=== PATIENT | female | born 2000 | race Caucasian/White ===

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

== ENCOUNTER 2022-03-01 10:04 | Day surgery (SDC) | payer BC, OTHER ==
[2022-02-25 15:00] VITALS: BMI 34.3
[~2022-03-01 10:04] MED LIST: LACTATED RINGERS 1,000 ML IV SCH; LIDOCAINE 1% (10MG/ML) FOR IV START INTRADERMA PRN
[2022-03-01 10:36] VITALS: TEMP 97.5
[2022-03-01] MEDS ORDERED: PROPOFOL 10 MG/ML 20 ML VIAL IV ONE (10:50)
[2022-03-01] MEDS ORDERED: LIDOCAINE 2% INJ 20 MG/ML (2 ML VIAL) ONE (10:50)
--- NOTE | 2022-03-01 10:57 | P.PCN ---
Date of Procedure: 03/01/22 Procedure(s) Performed: BRIEF HISTORY: Patient is a 21-year-old, pleasant, white female scheduled for an upper endoscopy as a part of evaluation of GERD for the last several years duration. Presently on omeprazole as needed and doing well. Lately has been complaining of nausea and abdominal bloating and being evaluated for possible celiac disease PROCEDURE PERFORMED: Esophagogastroduodenoscopy with biopsy. PREOPERATIVE DIAGNOSIS: Long-standing history of GERD. IV sedation per anesthesia. PROCEDURE: After informed consent was obtained, the patient was brought into the endoscopy unit. IV sedation was administered by Anesthesia under continuous monitoring. Initially the Olympus GIF-140 video endoscope was inserted into the mouth. Esophagus intubated without any difficulty. It was gradually advanced into the stomach and duodenum and carefully examined. The bulb and the second part of the duodenum appeared normal. Multiple biopsies were done from the duodenum to rule out celiac disease. The scope at this time was withdrawn to the stomach, adequately insufflated with air, and upon careful examination, mucosa of the antrum, had mild mottling of the mucosa and biopsies were done from this area. Mucosa of the body, cardia and the fundus appeared normal. The scope was then withdrawn into the esophagus. The GE junction was located at 39 cm from the incisors. The esophagus appeared normal. There were no erosions or ulcerations seen and the patient tolerated the procedure well. IMPRESSION: 1. Normal-appearing duodenum status post multiple biopsies to rule out celiac disease.. 2. Mild antral gastritis 3. Normal-appearing esophagus with no evidence of esophagitis. RECOMMENDATIONS: The findings of this examination were discussed with the patient as well as a family. She was advised to follow with the biopsy results. She will continue with omeprazole 20 mg daily and follow antireflux measures..
[2022-03-01 11:24] VITALS: BP 108/70; PULSE 70; RESP 20
== END 2022-03-01 11:42 | disposition home or self-care (01) ==
LOC: ORWHC2ENDO 10:04
PROVIDERS: ATTEND Internal Medicine Gastroenterology
DX: K29.50 Unspecified chronic gastritis without bleeding (principal); K21.9 Gastro-esophageal reflux disease without esophagitis; G43.909 Migraine, unspecified, not intractable, without status migrainosus; F17.200 Nicotine dependence, unspecified, uncomplicated; Z79.899 Other long term (current) drug therapy
CPT/HCPCS: 81025; 43239; J2704; J2001; 88305

== ENCOUNTER 2022-09-28 17:40 | Outpatient (CLI) | payer BC, OTHER ==
[2022-09-28 18:14] VITALS: BP 125/73; PULSE 85; RESP 16; TEMP 95.9
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
== END 2022-09-28 18:06 | disposition home or self-care (01) ==
LOC: FBPOP 17:40
PROVIDERS: ATTEND Obstetrics & Gynecology
DX: O36.8121 Decreased fetal movements, second trimester, fetus 1 (principal); O99.332 Smoking (tobacco) complicating pregnancy, second trimester; F17.200 Nicotine dependence, unspecified, uncomplicated; Z3A.27 27 weeks gestation of pregnancy; Z88.8 Allergy status to other drugs, medicaments and biological substances
CPT/HCPCS: 99213

== ENCOUNTER 2022-10-12 19:44 | Outpatient (CLI) | payer BC, OTHER ==
[2022-10-12] MEDS ORDERED: ACETAMINOPHEN TAB 325 MG TAB PO STA (20:09)
[2022-10-12 21:38] VITALS: BP 115/63; PULSE 92; RESP 19; TEMP 97.4
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
== END 2022-10-12 20:56 | disposition home or self-care (01) ==
LOC: FBPOP 19:44
PROVIDERS: ATTEND Obstetrics & Gynecology Obstetrics
DX: O26.893 Other specified pregnancy related conditions, third trimester (principal); Z3A.29 29 weeks gestation of pregnancy; Z88.8 Allergy status to other drugs, medicaments and biological substances; T14.90XA Injury, unspecified, initial encounter; W19.XXXA Unspecified fall, initial encounter
CPT/HCPCS: 59025; 99213

== ENCOUNTER 2022-12-23 17:33 | Inpatient (IN) | payer BC, OTHER ==
[2022-12-23] MEDS ORDERED: NALBUPHINE 10 MG/ML (10 ML MDV) IV PRN (18:19)
--- NOTE | 2022-12-23 18:19 | P.HPOB ---
History of Present Illness H&P Date: 12/23/22 Chief Complaint: IUP at 39-3/7 weeks, spontaneous rupture of membranes This is a 22-year-old 1 para 0 at 39-3/7 weeks that presents to labor and delivery with complaints of rupture of membranes. Patient states she was seen in the office today and was noted to be 4 cm dilated. Patient has been receiving routine care which has been complicated by diagnosis of polyhydramnios, amniotic fluid index of 26, SGA fetus at the 15th percentile. Patient does admit to baby being ring the but states she is trying to quit. She does note good movement, notes an occasional contraction. Patient states after her visit she did have some pink discharge followed a few hours later by some watery mucus discharge. Upon presentation to labor and delivery Amni sure was noted to be positive. heart tones are noted to be category 1 and she is jefe irregularly. On blood work she has a blood type of O-, rubella status immune, RPR is nonreactive, hepatitis B surface antigen negative, HIV is negative, she did pass her 1 hour gestational diabetes screen, 99. She receive program on 10/07. T dap on 10/07. Group beta strep culture was negative on 12/02. Review of Systems Constitutional: Denies chills, Denies fatigue, Denies fever Ears, nose, mouth and throat: Denies headache Cardiovascular: Reports leg edema Respiratory: Denies dyspnea Gastrointestinal: Denies constipation, Denies diarrhea, Denies nausea, Denies vomiting Genitourinary: Reports Past Medical History Past Medical History: GERD/Reflux Additional Past Medical History / Comment(s): migraines. gluten intolerance History of Any Multi-Drug Resistant Organisms: None Reported Past Surgical History: No Surgical Hx Reported Additional Past Surgical History / Comment(s): egd Past Anesthesia/Blood Transfusion Reactions: No Reported Reaction Smoking Status: Current every day smoker - Past Family History Mother Family Medical History: Cancer Additional Family Medical History / Comment(s): lung and breast, Grandma had br east and pancreatic, other Grandfather bladder and lung Medications and Allergies Home Medications Medication Instructions Recorded Confirmed Type Pnv,Calcium 72/Iron/Folic Acid 1 each PO DAILY 09/28/22 12/23/22 History [Westab Plus Tablet] Omeprazole 20 mg PO DAILY 12/23/22 12/23/22 History Allergies Allergy/AdvReac Type Severity Reaction Status Date / Time nystatin Allergy Rash/Hives Verified 12/23/22 17:51 Exam Osteopathic Statement: *. No significant issues noted on an osteopathic structural exam other than those noted in the History and Physical/Consult. Intake and Output 12/23/22 12/23/22 12/23/22 06:59 14:59 22:59 Other: Weight 95.708 kg Targeted physical exam is performed and state in general this a well-nourished well-developed female in no acute distress, breathing is nonlabored, heart has a regular rate and rhythm, abdomen is gravid, cervical exam per RN is 5//-3 station heart tones are noted to be category 1 and she is jefe irregularly Assessment and Plan (1) Term Current Visit: Yes Status: Acute Code(s): Z34.90 - ENCNTR FOR SUPRVSN OF NORMAL , UNSP, UNSP TRIMESTER SNOMED Code(s): 77036217 (2) Polyhydramnios Current Visit: Yes Status: Acute Code(s): O40.9XX0 - POLYHYDRAMNIOS, UNSP TRIMESTER, NOT APPLICABLE OR UNSP SNOMED Code(s): 91385510 (3) SGA (small for gestational age), , affecting care of mother, antepartum Current Visit: Yes Status: Acute Code(s): O36.5990 - MATERN CARE FOR OTH OR SUSP POOR FETL GRTH, UNSP TRI, UNSP SNOMED Code(s): 950091924 Plan: 22-year-old 1 para 0 at 39-3/7 weeks that presents to labor and delivery for studies rupture of membranes. Spontaneous rupture of membranes was confirmed with amnio sure. Patient is admitted to labor and delivery for expectant management, group beta strep culture is negative. Patient will be augmented with Pitocin if necessary. Options for analgesia are discussed including Stadol, Nubain, nitrous, epidural.
[2022-12-23] MEDS ORDERED: CARBOPROST TROMETHAMINE 250 MCG/ML 1 ML AMP IM PRN (18:20)
[2022-12-23] MEDS ORDERED: OXYTOCIN 10 UNIT/ML 1 ML VIAL IM PRN (18:20)
[2022-12-23] MEDS ORDERED: METHYLERGONOVINE 0.2 MG/ML 1 ML AMP IM PRN (18:20)
[2022-12-23] MEDS ORDERED: TERBUTALINE 1 MG/ML VIAL SQ PRN (18:20)
[2022-12-23] MEDS ORDERED: LIDOCAINE 0.5% (PF) 5 MG/ML (50 ML SDV) SQ PRN (18:20)
[2022-12-23] MEDS ORDERED: miSOPROStoL 200 MCG TAB PO PRN (18:20)
[2022-12-23] MEDS ORDERED: TRANEXAMIC 1,000 MG/100ML-NACL 1,000 MG in EMPTY BAG 1 BAG IV PRN (18:20)
[2022-12-23] MEDS ORDERED: OXYTOCIN 30 UNITS/500 ML NS 30 UNIT in SALINE 1 500ML.BAG IV SCH (18:30)
[2022-12-23 18:48] LABS: Basophils % (A) 0 %; Eosinophils # (A) 0.1 k/uL (0-0.7); Eosinophils % (A) 1 %; HCT 35.7 % (34.0-46.0); HGB 12.2 gm/dL (11.4-16.0); Lymphocytes # (A) 1.4 k/uL (1.0-4.8); Lymphocytes % (A) 13 %; MCH 33.1 pg (25.0-35.0); MCHC 34.1 g/dL (31.0-37.0); Mean Platelet Volume 9.2; Monocytes # (A) 0.5 k/uL (0-1.0); Monocytes % (A) 5 %; Neutrophils # (A) 8.3 k/uL (1.3-7.7); Neutrophils % (A) 80 %; Platelet Count 179 k/uL (150-450); RBC 3.68 m/uL (3.80-5.40); WBC 10.3 k/uL (4.0-11.0)
[2022-12-23] MEDS: LACTATED RINGERS 1,000 ML IV SCH (19:00)
[2022-12-24] MEDS ORDERED: fentaNYL (PF) 50 MCG/ML 5 ML AMP ONE (00:19)
[2022-12-24] MEDS ORDERED: PHENYLEPHRINE-0.9% NACL SYG 1,000 MCG/10 ML SYRINGE ONE (00:19)
[2022-12-24] MEDS ORDERED: ROPIVACAINE 5 MG/ML 30 ML VIAL ONE (00:19)
[2022-12-24] MEDS ORDERED: SODIUM CHLORIDE 0.9% 250 ML BAG ONE (00:19)
[2022-12-24] MEDS: LACTATED RINGERS 1,000 ML IV SCH ×2 (01:42→11:47)
[2022-12-24] MEDS ORDERED: diphenhydrAMINE 50 MG/ML 1 ML VIAL IVP PRN ×2 (11:20)
[2022-12-24] MEDS ORDERED: HYDROCORTISONE 2.5% RECTAL CREAM 30 GM TUBE RECTAL PRN (11:20)
[2022-12-24] MEDS ORDERED: diphenhydrAMINE 25 MG CAP PO PRN (11:20)
[2022-12-24] MEDS ORDERED: BENZOCAINE/MENTHOL SPRAY 1 GM/SPRAY AEROSOL TOPICAL PRN (11:20)
[2022-12-24] MEDS ORDERED: SIMETHICONE 80 MG CHEWABLE PO PRN (11:20)
[2022-12-24] MEDS ORDERED: LANOLIN CREAM 5 GM TUBE TOPICAL PRN (11:20)
[2022-12-24] MEDS ORDERED: diphenhydrAMINE 50 MG CAP PO PRN (11:20)
[2022-12-24] MEDS ORDERED: ZOLPIDEM 5 MG TAB PO PRN (11:20)
[2022-12-24] MEDS ORDERED: ACETAMINOPHEN TAB 325 MG TAB PO PRN (11:20)
--- NOTE | 2022-12-24 11:20 | P.PROBDLV ---
Vaginal Delivery Note - . Vaginal Delivery Note: DATE OF SERVICE: 12/24/2022 PROCEDURE: Normal Vaginal Delivery ATTENDING: Dr. Manjula Matt MD ESTIMATED BLOOD LOSS: 200 mL FINDINGS: VFI, Apgars 8/9. Weight 6 pounds and 3 ounces (2795 grams) PROCEDURE: Ms. Hernandez is a 22 year old at 39 weeks and 3 days presenting to labor and delivery for spontaneous rupture of membranes on 12/23 at 1700 with clear amniotic fluid noted. The has been uncomplicated. For further details, please review the admitting H&P. The patient received epidural anesthesia per her request. The patient was completely dilated at 1030. She pushed effectively. A viable female was delivered at 1047. The infant was placed on the maternal abdomen and bulb suctioned. The was noted to be spontaneously crying. Throughout the first and second stage of labor Category I heart tones were present. Cord was clamped and cut after a 30-second delay. The was handed off to the pediatric team. Placenta was delivered whole with gentle cord traction at 1053. Oxytocin was started to facilitate uterine tone. Uterine fundus was found to be firm and below the umbilicus upon fundal massage. Thorough examination of the cervix, vagina, periurethral area, and perineum revealed a deep left labia minora laceration and a second degree perineal laceration. The lacerations were repaired with 2-0 Vicryl in the usual fashion after being infiltrated with lidocaine. The patient is stable and allowed to begin the bonding process. Patient stable .
[2022-12-24] MEDS ORDERED: Rhogam IMMUNE GLOBULIN 1,500 UNIT/1 ML IM ONE (11:30)
[2022-12-24] MEDS: IBUPROFEN 600 MG TAB PO PRN ×2 (13:33→23:25)
[2022-12-24 15:32] LABS: Amphetamine Screen,Urine Not Detected (NotDetected); Barbiturate Screen,Urine Not Detected (NotDetected); Benzodiazepines Screen,Urine Not Detected (NotDetected); Cocaine Screen,Urine Not Detected (NotDetected); Methadone Screen, Urine Not Detected (NotDetected); Opiate Screen,Urine Not Detected (NotDetected); Oxycodone Screen, Urine Not Detected (NotDetected); Phencyclidine Screen,Urine Not Detected (NotDetected); Tricyclic Antidepressant,Urine Not Detected (NotDetected); Urn Cannabinoid Scrn Not Detected (NotDetected)
[2022-12-24] MEDS: SENNOSIDES-DOCUSATE SODIUM 1 EACH TAB PO SCH (20:03)
[2022-12-24 23:45] VITALS: PULSE 98
[2022-12-25 07:48] VITALS: BP 115/75; TEMP 99.6
[2022-12-25 08:06] VITALS: RESP 16
[2022-12-25] MEDS: SENNOSIDES-DOCUSATE SODIUM 1 EACH TAB PO SCH (08:11)
[2022-12-25] MEDS: IBUPROFEN 600 MG TAB PO PRN (08:12)
[2022-12-25 09:20] LABS: Basophils % (A) 0 %; Eosinophils % (A) 0 %; HCT 28.6 % (34.0-46.0); Lymphocytes # (A) 0.9 k/uL (1.0-4.8); Lymphocytes % (A) 8 %; MCH 32.9 pg (25.0-35.0); MCHC 33.7 g/dL (31.0-37.0); MCV 97.8 fL (80.0-100.0); Mean Platelet Volume 9.1; Monocytes # (A) 0.5 k/uL (0-1.0); Monocytes % (A) 4 %; Neutrophils # (A) 10.1 k/uL (1.3-7.7); Neutrophils % (A) 87 %; Platelet Count 145 k/uL (150-450); RBC 2.92 m/uL (3.80-5.40); RDW 12.7 % (11.5-15.5); WBC 11.6 k/uL (4.0-11.0)
[2022-12-25 09:25] LABS: HGB 9.6 gm/dL (11.4-16.0)
--- NOTE | 2022-12-25 10:38 | P.DS ---
Providers Date of admission: 12/23/22 18:14 Expected date of discharge: 12/25/22 Attending physician: Manjula Matt MD Primary care physician: Stated None - Discharge Diagnosis(es) (1) Normal spontaneous vaginal delivery Current Visit: Yes Status: Acute Hospital Course: The patient is a 22-year-old 1 para 0 admitted at 39-3/7 weeks by raysa spicer. She presents with documented spontaneous rupture of membranes for clear fluid. Her was uncomplicated aside from the diagnosis of polyhydramnios. Group B strep status is negative. On labor and delivery, all signs reassuring with category 1 heart rate tracing. She had Pitocin augmentation started and an epidural catheter placed for analgesia. She ultimately progressed to complete and pushed to a normal spontaneous vaginal delivery of a viable 6 lbs. 3 oz. baby girl with Apgars of 8 at 1 minute and 9 at 5 minutes. Her course was unremarkable with vital signs remained stable and her temperature was afebrile throughout. She was deemed stable for discharge on day #1 and was discharged home to follow-up in the office in 6 weeks' time routinely. Discharge instructions included calling for any significantly increased bleeding or foul-smelling lochia, significantly increased fever or abdominal pain, perineal complaints, breast complaints, or anything else that concerned her. She was additionally instructed to have nothing in the vagina for at least 6 weeks time to include intercourse. She understood her instructions and agrees to follow up as noted above. Discharge medications included continued vitamins as she has opted to breast- feed. She was otherwise to use [id number] analgesic pain medications as needed. Maternal blood type is O- and cord blood was sent for evaluation for the necessity of RhoGAM prior to discharge. Rubella status is immune. Procedures: #1. Pitocin augmentation #2. Epidural analgesia #3. Normal spontaneous vaginal delivery #4. Repair of perineal and labial lacerations. Patient Condition at Discharge: Stable Plan - Discharge Summary New Discharge Prescriptions: No Action Pnv,Calcium 72/Iron/Folic Acid [Westab Plus Tablet] 1 each PO DAILY Omeprazole 20 mg PO DAILY Discharge Medication List Pnv,Calcium 72/Iron/Folic Acid [Westab Plus Tablet] 1 each PO DAILY 09/28/22 [History] Omeprazole 20 mg PO DAILY 12/23/22 [History] Follow up Appointment(s)/Referral(s): Manjula Matt MD [STAFF PHYSICIAN] - 6 Weeks Discharge Disposition: HOME SELF-CARE
== END 2022-12-25 14:11 | disposition home or self-care (01) | DRG 806 ==
LOC: FBPOP 17:33 → 4FBP 18:14
PROVIDERS: ADMIT Obstetrics & Gynecology Obstetrics; ATTEND Obstetrics & Gynecology
PROC: 3E033VJ Introduction of Other Hormone into Peripheral Vein, Percutaneous Approach (ICD-10-PCS; principal; 2022-12-24)
PROC: 0UQMXZZ Repair Vulva, External Approach (ICD-10-PCS; 2022-12-24)
PROC: 10E0XZZ Delivery of Products of Conception, External Approach (ICD-10-PCS; 2022-12-24)
PROC: 0KQM0ZZ Repair Perineum Muscle, Open Approach (ICD-10-PCS; 2022-12-24)
PROC: 4A1HXCZ Monitoring of Products of Conception, Cardiac Rate, External Approach (ICD-10-PCS; 2022-12-24)
DX: O42.92 Full-term premature rupture of membranes, unspecified as to length of time between rupture and onset of labor (principal); K90.41 Non-celiac gluten sensitivity; Z37.0 Single live birth; O99.354 Diseases of the nervous system complicating childbirth; F17.210 Nicotine dependence, cigarettes, uncomplicated; O36.5930 Maternal care for other known or suspected poor fetal growth, third trimester, not applicable or unspecified; O40.3XX0 Polyhydramnios, third trimester, not applicable or unspecified; O70.1 Second degree perineal laceration during delivery; O99.334 Smoking (tobacco) complicating childbirth; Z3A.39 39 weeks gestation of pregnancy; G43.909 Migraine, unspecified, not intractable, without status migrainosus; K21.9 Gastro-esophageal reflux disease without esophagitis; O99.62 Diseases of the digestive system complicating childbirth; Z88.8 Allergy status to other drugs, medicaments and biological substances; O70.0 First degree perineal laceration during delivery
CPT/HCPCS: 59025; 80306; 84112; 85025; 86850; 86900; 86901; 99213

== ENCOUNTER 2022-12-28 04:36 | Emergency (ER) | payer BC, OTHER ==
[2022-12-28] MEDS ORDERED: SODIUM CHLORIDE 0.9% 1,000 ML IV STA (04:52)
[2022-12-28] MEDS ORDERED: ACETAMINOPHEN TAB 500 MG TAB PO STA ×2 (04:53→05:18)
--- NOTE | 2022-12-28 05:23 | ED ---
General Adult HPI - General Source: patient Mode of arrival: wheelchair <Magan Velasquez - Last Filed: 12/28/22 06:48> <Kong Abraham - Last Filed: 12/28/22 09:28> - General Chief complaint: Fever Stated complaint: Fever- 4 day Time Seen by Provider: 12/28/22 04:40 - History of Present Illness Initial comments: Dictation was produced using [employer] dictation software. please excuse any grammatical, word or spelling errors. Chief Complaint: 22-year-old female who is 4 days presents with fever History of Present Illness: 3-year-old female presents emergency Department with fever. States that she's been sick for the last several days prior to delivering her child. She is told that her fevers were from a viral infection. She delivered baby with no complications. Delivery was 4 days ago. That night she started to have chills and spike temperatures. Ultimately she was discharged. Today at home she started to have high temperatures of 103. Denies any cough. No sore throat or runny nose. Denies any abdominal pain. She does complain of some vaginal soreness that she is unsure if it is abnormal after the child or not. Denies any rash. The ROS documented in this emergency department record has been reviewed and confirmed by me. Those systems with pertinent positive or negative responses have been documented in the HPI. All other systems are other negative and/or noncontributory. (Magan Velasquez) - Related Data Home Medications Medication Instructions Recorded Confirmed Pnv,Calcium 72/Iron/Folic Acid 1 each PO DAILY 09/28/22 12/23/22 [[place] Plus Tablet] Omeprazole 20 mg PO DAILY 12/23/22 12/23/22 Previous Rx's Medication Instructions Recorded Cephalexin [Keflex] 500 mg PO Q12HR 5 Days #10 cap 12/28/22 Allergies Allergy/AdvReac Type Severity Reaction Status Date / Time nystatin Allergy Rash/Hives Verified 12/23/22 17:51 Review of Systems ROS Other: All systems not noted in ROS Statement are negative. <Magan Velasquez - Last Filed: 12/28/22 06:48> ROS Other: All systems not noted in ROS Statement are negative. <Kong Abraham - Last Filed: 12/28/22 09:28> ROS Statement: Those systems with pertinent positive or pertinent negative responses have been documented in the HPI. Past Medical History Past Medical History: GERD/Reflux Additional Past Medical History / Comment(s): migraines. gluten intolerance History of Any Multi-Drug Resistant Organisms: None Reported Past Surgical History: No Surgical Hx Reported Additional Past Surgical History / Comment(s): egd Past Anesthesia/Blood Transfusion Reactions: No Reported Reaction Past Psychological History: Anxiety, Bipolar, Depression Smoking Status: Current every day smoker - Past Family History Mother Family Medical History: Cancer Additional Family Medical History / Comment(s): lung and breast, Grandma had breast and pancreatic, other Grandfather bladder and lung <Magan Velasquez - Last Filed: 12/28/22 06:48> General Exam <Magan Velasquez - Last Filed: 12/28/22 06:48> - General Exam Comments Initial Comments: PHYSICAL EXAM: General Impression: Alert and oriented x3, not in acute distress HEENT: Normocephalic atraumatic, extra-ocular movements intact, pupils equal and reactive to light bilaterally, mucous membranes moist, bilateral inflamed tonsils with exudates Cardiovascular: Heart regular rate and rhythm Chest: Able to complete full sentences, no retractions, no tachypnea Abdomen: abdomen soft, non-tender, non-distended, no organomegaly Musculoskeletal: Pulses present and equal in all extremities, no peripheral edema Motor: no focal deficits noted Neurological: CN II-XII grossly intact, no focal motor or sensory deficits noted Skin: Intact with no visualized rashes Psych: Normal affect and mood (Magan Velasquez) Course Vital Signs 12/28/22 12/28/22 12/28/22 04:47 05:57 06:55 Temperature 102.8 F H 99.0 F Pulse Rate 148 H 96 Respiratory 19 17 Rate Blood Pressure 98/59 106/59 O2 Sat by Pulse 99 98 Oximetry Medical Decision Making - Lab Data Result diagrams: 12/28/22 05:05 12/28/22 05:05 <Magan Velasquez - Last Filed: 12/28/22 06:48> - Lab Data Result diagrams: 12/28/22 05:05 12/28/22 05:05 <Kong Abraham - Last Filed: 12/28/22 09:28> - Medical Decision Making Was pt. sent in by a medical professional or institution ([facility] Saldaña, DEVELOPER ANALYST, urgent care, hospital, or longterm...) When possible be specific @ -No Did you speak to anyone other than the patient for history (EMS, parent, family, police, friend...)? What history was obtained from this source @ -No Did you review nursing and triage notes (agree or disagree)? Why? @ -I reviewed and agree with nursing and triage notes Were old charts reviewed (outside hosp., previous admission, EMS record, old EKG, old radiological studies, urgent care reports/EKG's, longterm records)? Report findings @ -No old charts were reviewed Differential Diagnosis (chest pain, altered mental status, abdominal pain women, abdominal pain men, vaginal bleeding, musculoskeletal, weakness, fever, dyspnea, syncope, headache, dizziness, GI bleed, back pain, seizure, CVA, palpatations, mental health)? @ -Differential Fever: Pneumonia, viral URI, endocarditis, myocarditis, pericarditis, otitis, sinusitis, peritonsillar Abscess, retropharyngeal Abscess, epiglottitis, peritonitis, appendicitis, Amanda cystitis, diverticulitis, hepatitis, colitis, UTI, PID, TOA, pyelonephritis, prostatitis, epididymitis, meningitis, encephalitis, pulmonary embolism, CVA, thyroid storm, pancreatitis, adrenal crisis, cavernous sinus thrombosis, this is not meant to be an all-inclusive list. EKG interpreted by me (3pts min.). @ -None done X-rays interpreted by me (1pt min.). @ -None done CT interpreted by me (1pt min.). @ -None done U/S interpreted by me (1pt. min.). @ -pending What testing was considered but not performed or refused? (CT, X-rays, U/S, labs)? Why? @ -None What meds were considered but not given or refused? Why? @ -None Did you discuss the management of the patient with other professionals (professionals i.e. BEBETO Saldaña, DEVELOPER ANALYST, lab, RT, psych nurse, rn social services, store stock associate, teacher, accounts officer, case picker)? Give summary @ -No Was smoking cessation discussed for >3mins.? @ -No Was critical care preformed (if so, how long)? @ -No Were there social determinants of health that impacted care today? How? (Homelessness, low income, unemployed, alcoholism, drug addiction, transportation, low edu. Level, literacy, decrease access to med. care, fpc, rehab)? @ -No Was there de-escalation of care discussed even if they declined (Discuss DNR or withdrawal of care, Hospice)? DNR status @ -No What co-morbidities impacted this encounter? (DM, HTN, Smoking, COPD, CAD, Cancer, CVA, ARF, Chemo, Hep., AIDS, mental health diagnosis, sleep apnea, morbid obesity)? @ -None Was patient admitted / discharged? Hospital course, mention meds given and route, prescriptions, significant lab abnormalities, going to OR and other pertinent info. @ -22-year-old female presents to the emergency department for fever. She is 4 days . Vital signs upon arrival shows temperature 102.8 with a heart rate of 148. Rest of vital signs unremarkable. Laboratory evaluation shows no leukocytosis. Hemoglobin 10.4. Coag panel is unremarkable. Metabolic panel is within acceptable limits. Vital testing is negative. Pending urinalysis and heterophile test. Patient is refusing strep testing. Patient is signed out to Dr. Abraham for follow-up of pending studies Undiagnosed new problem with uncertain prognosis? @ -No Drug Therapy requiring intensive monitoring for toxicity (Heparin, Nitro, Insulin, Cardizem)? @ -No Were any procedures done? @ -No Diagnosis/symptom? Acute, or Chronic, or Acute on Chronic? Uncomplicated (without systemic symptoms) or Complicated (systemic symptoms)? @ - fever Side effects of treatment? @ -No Exacerbation, Progression, or Severe Exacerbation? @ -No Poses a threat to life or bodily function? How? (Chest pain, [place], [place], pneumonia, PE, COPD, DKA, ARF, appy, cholecystitis, CVA, Diverticulitis, Homicidal, Suicidal, threat to staff... and all critical care pts) @ -yes (Magan Velasquez) Patient is a 22-year-old female who was signed out pending results of ultrasound. Briefly, patient is 4 days status post spontaneous vaginal delivery with Dr. Matt. She was having upper respiratory symptoms a few days prior to delivery. She states she was having fevers since discharge over the weekend. States she is continuing to have fevers that do respond to Tylenol. Is continuing to only have upper respiratory symptoms consisting of sinus congestion, mild sore throat but no cough. No abdominal pain or nausea or vomiting. Denies significant vaginal bleeding or foul smelling discharge. Denies any diarrhea. No known sick contacts. Denies dysuria or hematuria. His no other acute complaints at this time. Presents for fever of unknown origin. Workup thus far relatively unremarkable. Patient does not have a leukocytosis. I improving anemia status post delivery. Labs otherwise within acceptable limits. Patient declines a strep throat swab but her mono test as well as flu, RSV, Covid are negative. Urinalysis is contaminated catch as it does have 10 squamous epithelial cells present as well as 82 RBCs likely secondary to her vaginal bleeding post vaginal delivery. Nitrates are negative. Large amount leukocyte esterase present however. Patient did not have prolonged rupture of membranes prior to delivery. Predelivery workup unremarkable including a nega tive strep test. There was a delay in obtaining ultrasound results were unable to cross over for the radiologist a few. Verbal read to be provided by when the ultrasound revealed a small amount of fluid in the endometrium which is normal finding for patient who is and no evidence of retained products of conception. I also interpreted the ultrasound and I am in agreement with these findings. Discussed this case with Dr. Matt, patient's OB who was in agreement with the plan and for follow-up. We will empirically treat the patient for UTI. She does agree it is likely a viral URI. Symptomatically supportive care at home. Discussed this with the patient. She was in agreement this plan. Strict return precautions discussed including foul-smelling lochia or any worsening abdominal pain. I will provide the patient with a prescription for Keflex. I instructed the patient to follow up with their PCP in the next 1-3 days. I explained that the patient should return to the emergency department if they experience any worsening symptoms. Strict return precautions were discussed with the patient. The patient expressed understanding of these instructions. I answered all questions that the patient had. The patient was discharged home in good con dition with their prescriptions and follow up information. Diagnosis/symptom? @ -Fever of unknown origin, suspect possible UTI versus viral URI Acute, or Chronic, or Acute on Chronic? @ -Acute Uncomplicated (without systemic symptoms) or Complicated (systemic symptoms)? @ -Complicated Side effects of treatment? @ -none Exacerbation, Progression, or Severe Exacerbation] @ -no Poses a threat to life or bodily function? @ -Unlikely (Kong Abraham) - Lab Data Lab Results 12/28/22 12/28/22 12/28/22 Range/Units 04:53 05:05 05:05 WBC 10.0 (4.0-11.0) k/uL RBC 3.11 L (3.80-5.40) m/uL Hgb 10.4 L (11.4-16.0) gm/dL Hct 30.0 L (34.0-46.0) % MCV 96.6 (80.0-100.0) fL MCH 33.3 (25.0-35.0) pg MCHC 34.5 (31.0-37.0) g/dL RDW 12.6 (11.5-15.5) % Plt Count 252 (150-450) k/uL MPV 8.2 Neutrophils % 88 % Lymphocytes % 5 % Monocytes % 6 % Eosinophils % 1 % Basophils % 0 % Neutrophils # 8.8 H (1.3-7.7) k/uL Lymphocytes # 0.5 L (1.0-4.8) k/uL Monocytes # 0.6 (0-1.0) k/uL Eosinophils # 0.1 (0-0.7) k/uL Basophils # 0.0 (0-0.2) k/uL PT 9.6 L (10.0-12.5) sec INR 0.8 (<1.2) APTT 23.6 (22.0-30.0) sec Sodium (137-145) mmol/L Potassium (3.5-5.1) mmol/L Chloride (98-107) mmol/L Carbon Dioxide (22-30) mmol/L Anion Gap mmol/L BUN (7-17) mg/dL Creatinine (0.52-1.04) mg/dL Est GFR (CKD-EPI)AfAm (>60 ml/min/1.73 sqM) Est GFR (CKD-EPI)NonAf (>60 ml/min/1.73 sqM) Glucose (74-99) mg/dL Plasma Lactic Acid Peña (0.7-2.0) mmol/L Calcium (8.4-10.2) mg/dL Magnesium (1.6-2.3) mg/dL Total Bilirubin (0.2-1.3) mg/dL AST (14-36) U/L ALT (4-34) U/L Alkaline Phosphatase (38-126) U/L Total Protein (6.3-8.2) g/dL Albumin (3.5-5.0) g/dL Urine Color Yellow Urine Appearance Cloudy H (Clear) Urine pH 6.0 (5.0-8.0) Ur Specific Bells >1.030 (1.001-1.035) Urine Protein 2+ (Negative) Urine Glucose (UA) Negative (Negative) Urine Ketones Negative (Negative) Urine Blood Large (Negative) Urine Nitrite Negative (Negative) Urine Bilirubin Negative (Negative) Urine Urobilinogen <2.0 (<2.0) mg/dL Ur Leukocyte Esterase Large (Negative) Urine RBC 82 H (0-5) /hpf Urine WBC >182 H (0-5) /hpf Urine WBC Clumps Many H (None) /hpf Ur Squamous Epith Cells 10 H (0-4) /hpf Urine Bacteria Many H (None) /hpf Urine Mucus Moderate H (None) /hpf Heterophile Antibody (Negative) Influenza Type A (PCR) (Not Detectd) Influenza Type B (PCR) (Not Detectd) RSV (PCR) (Not Detectd) SARS-CoV-2 (PCR) (Not Detectd) 12/28/22 12/28/22 12/28/22 Range/Units 05:05 05:05 05:05 WBC (4.0-11.0) k/uL RBC (3.80-5.40) m/uL Hgb (11.4-16.0) gm/dL Hct (34.0-46.0) % MCV (80.0-100.0) fL MCH (25.0-35.0) pg MCHC (31.0-37.0) g/dL RDW (11.5-15.5) % Plt Count (150-450) k/uL MPV Neutrophils % % Lymphocytes % % Monocytes % % Eosinophils % % Basophils % % Neutrophils # (1.3-7.7) k/uL Lymphocytes # (1.0-4.8) k/uL Monocytes # (0-1.0) k/uL Eosinophils # (0-0.7) k/uL Basophils # (0-0.2) k/uL PT (10.0-12.5) sec INR (<1.2) APTT (22.0-30.0) sec Sodium 136 L (137-145) mmol/L Potassium 3.7 (3.5-5.1) mmol/L Chloride 106 (98-107) mmol/L Carbon Dioxide 21 L (22-30) mmol/L Anion Gap 9 mmol/L BUN 12 (7-17) mg/dL Creatinine 0.78 (0.52-1.04) mg/dL Est GFR (CKD-EPI)AfAm >90 (>60 ml/min/1.73 sqM) Est GFR (CKD-EPI)NonAf >90 (>60 ml/min/1.73 sqM) Glucose 115 H (74-99) mg/dL Plasma Lactic Acid Peña 1.6 (0.7-2.0) mmol/L Calcium 8.6 (8.4-10.2) mg/dL Magnesium 1.9 (1.6-2.3) mg/dL Total Bilirubin 0.6 (0.2-1.3) mg/dL AST 27 (14-36) U/L ALT 22 (4-34) U/L Alkaline Phosphatase 105 (38-126) U/L Total Protein 5.8 L (6.3-8.2) g/dL Albumin 3.0 L (3.5-5.0) g/dL Urine Color Urine Appearance (Clear) Urine pH (5.0-8.0) Ur Specific Bells (1.001-1.035) Urine Protein (Negative) Urine Glucose (UA) (Negative) Urine Ketones (Negative) Urine Blood (Negative) Urine Nitrite (Negative) Urine Bilirubin (Negative) Urine Urobilinogen (<2.0) mg/dL Ur Leukocyte Esterase (Negative) Urine RBC (0-5) /hpf Urine WBC (0-5) /hpf Urine WBC Clumps (None) /hpf Ur Squamous Epith Cells (0-4) /hpf Urine Bacteria (None) /hpf Urine Mucus (None) /hpf Heterophile Antibody Negative (Negative) Influenza Type A (PCR) (Not Detectd) Influenza Type B (PCR) (Not Detectd) RSV (PCR) (Not Detectd) SARS-CoV-2 (PCR) (Not Detectd) 12/28/22 Range/Units 05:05 WBC (4.0-11.0) k/uL RBC (3.80-5.40) m/uL Hgb (11.4-16.0) gm/dL Hct (34.0-46.0) % MCV (80.0-100.0) fL MCH (25.0-35.0) pg MCHC (31.0-37.0) g/dL RDW (11.5-15.5) % Plt Count (150-450) k/uL MPV Neutrophils % % Lymphocytes % % Monocytes % % Eosinophils % % Basophils % % Neutrophils # (1.3-7.7) k/uL Lymphocytes # (1.0-4.8) k/uL Monocytes # (0-1.0) k/uL Eosinophils # (0-0.7) k/uL Basophils # (0-0.2) k/uL PT (10.0-12.5) sec INR (<1.2) APTT (22.0-30.0) sec Sodium (137-145) mmol/L Potassium (3.5-5.1) mmol/L Chloride (98-107) mmol/L Carbon Dioxide (22-30) mmol/L Anion Gap mmol/L BUN (7-17) mg/dL Creatinine (0.52-1.04) mg/dL Est GFR (CKD-EPI)AfAm (>60 ml/min/1.73 sqM) Est GFR (CKD-EPI)NonAf (>60 ml/min/1.73 sqM) Glucose (74-99) mg/dL Plasma Lactic Acid Peña (0.7-2.0) mmol/L Calcium (8.4-10.2) mg/dL Magnesium (1.6-2.3) mg/dL Total Bilirubin (0.2-1.3) mg/dL AST (14-36) U/L ALT (4-34) U/L Alkaline Phosphatase (38-126) U/L Total Protein (6.3-8.2) g/dL Albumin (3.5-5.0) g/dL Urine Color Urine Appearance (Clear) Urine pH (5.0-8.0) Ur Specific Bells (1.001-1.035) Urine Protein (Negative) Urine Glucose (UA) (Negative) Urine Ketones (Negative) Urine Blood (Negative) Urine Nitrite (Negative) Urine Bilirubin (Negative) Urine Urobilinogen (<2.0) mg/dL Ur Leukocyte Esterase (Negative) Urine RBC (0-5) /hpf Urine WBC (0-5) /hpf Urine WBC Clumps (None) /hpf Ur Squamous Epith Cells (0-4) /hpf Urine Bacteria (None) /hpf Urine Mucus (None) /hpf Heterophile Antibody (Negative) Influenza Type A (PCR) Not Detected (Not Detectd) Influenza Type B (PCR) Not Detected (Not Detectd) RSV (PCR) Not Detected (Not Detectd) SARS-CoV-2 (PCR) Not Detected (Not Detectd) Disposition <Magan Velasquez - Last Filed: 12/28/22 06:48> Is patient prescribed a controlled substance at d/c from ED?: No Time of Disposition: 09:18 <Kong Abraham - Last Filed: 12/28/22 09:28> Clinical Impression: Fever, UTI (urinary tract infection), URI (upper respiratory infection) Disposition: HOME SELF-CARE Condition: Good Instructions (If sedation given, give patient instructions): Fever in Adults (ED) Prescriptions: Cephalexin [Keflex] 500 mg PO Q12HR 5 Days #10 cap Referrals: Cha Abraham DO [Primary Care Provider] - 1-2 days
[2022-12-28 05:38] LABS: Basophils % (A) 0 %; Eosinophils # (A) 0.1 k/uL (0-0.7); Eosinophils % (A) 1 %; HGB 10.4 gm/dL (11.4-16.0); Lymphocytes # (A) 0.5 k/uL (1.0-4.8); Lymphocytes % (A) 5 %; MCH 33.3 pg (25.0-35.0); MCHC 34.5 g/dL (31.0-37.0); MCV 96.6 fL (80.0-100.0); Mean Platelet Volume 8.2; Monocytes # (A) 0.6 k/uL (0-1.0); Monocytes % (A) 6 %; Neutrophils # (A) 8.8 k/uL (1.3-7.7); Neutrophils % (A) 88 %; Platelet Count 252 k/uL (150-450); RBC 3.11 m/uL (3.80-5.40); RDW 12.6 % (11.5-15.5)
[2022-12-28 05:45] LABS: ALT 22 U/L (4-34); AST 27 U/L (14-36); African American GFR (CKD) >90 (>60 ml/min/1.73 sqM); Alkaline Phosphatase 105 U/L (38-126); Anion Gap 9 mmol/L; Blood Urea Nitrogen 12 mg/dL (7-17); Calcium 8.6 mg/dL (8.4-10.2); Carbon Dioxide 21 mmol/L (22-30); Chloride 106 mmol/L (98-107); Glucose 115 mg/dL (74-99); Magnesium 1.9 mg/dL (1.6-2.3); Non-African American GFR(CKD) >90 (>60 ml/min/1.73 sqM); Potassium 3.7 mmol/L (3.5-5.1); Sodium 136 mmol/L (137-145); Total Bilirubin 0.6 mg/dL (0.2-1.3); Total Protein 5.8 g/dL (6.3-8.2)
[2022-12-28 05:55] LABS: INR 0.8 (<1.2); Partial Thromboplastin Time 23.6 sec (22.0-30.0); Prothrombin Time 9.6 sec (10.0-12.5)
[2022-12-28 08:33] LABS: Bacteria,Urine Many /hpf; Mucus,Urine Moderate /hpf; RBC,Urine 82 /hpf (0-5); Squamous Epithelial Cell,Urine 10 /hpf (0-4); WBC,Urine >182 /hpf (0-5)
[2022-12-28 08:40] LABS: Appearance,Urine Cloudy (Clear); Color,Urine Yellow; Glucose,Urine (UA) Negative (Negative); Protein,Urine 2+ (Negative); Specific Gravity,Urine >1.030 (1.001-1.035)
[2022-12-28 08:41] LABS: Bilirubin,Urine Negative (Negative); Blood,Urine Large (Negative); Ketones,Urine Negative (Negative); Leukocyte Esterase,Urine Large (Negative); Nitrite,Urine Negative (Negative); Urobilinogen,Urine <2.0 mg/dL (<2.0)
[2022-12-28] MEDS ORDERED: CEPHALEXIN 500 MG CAP PO STA (09:22)
[2022-12-28 09:57] VITALS: BP 116/75; PULSE 99; RESP 18; TEMP 97.9
--- NOTE | 2022-12-28 10:04 | US ---
EXAMINATION TYPE: US pelvic complete DATE OF EXAM: 12/28/2022 COMPARISON: NONE CLINICAL INDICATION: Female, 22 years old with history of post fever; , 4 days, fever for 4 days. No bleeding, mild cramping TECHNIQUE: TA. Transabdominal sonographic images of the pelvis were acquired. Date of LMP: 4 days EXAM MEASUREMENTS: Uterus: 13.1 x 10.5 x 8.0 cm Endometrial Stripe: 0.9 cm Right Ovary: 4.0 x 2.8 x 1.6 cm Left Ovary: 3.0 x 2.9 x 1.5 cm 1. Uterus: Anteverted enlarged UT 2. Endometrium: not thickened, some fluid seen within ALE, no increased vascularity seen 3. Right Ovary: wnl 4. Left Ovary: wnl Spectral, color and waveform doppler imaging shows good arterial and venous flow within the ovaries ; there is no evidence for ovarian torsion. 5. Bilateral Adnexa: wnl 6. Posterior cul-de-sac: wnl Tech impression relayed to Dr Abraham by at 8:30am IMPRESSION: 1. Post gravid uterus with heterogenous appearance of the uterus with debris in the endometrium.. En dometrium measures up to 10 mm in thickness. No increased vascularity of the uterus to suggest endome tritis 2. Debris favored represent blood products in endometrium as it is without increased vascularity, al ternatively retained blood products in the appropriate clinical setting could be considered.
== END 2022-12-28 09:54 | disposition home or self-care (01) ==
LOC: EC 04:36
DX: O99.53 Diseases of the respiratory system complicating the puerperium (principal); J06.9 Acute upper respiratory infection, unspecified; O86.20 Urinary tract infection following delivery, unspecified; N39.0 Urinary tract infection, site not specified; B96.89 Other specified bacterial agents as the cause of diseases classified elsewhere; O99.63 Diseases of the digestive system complicating the puerperium; K21.9 Gastro-esophageal reflux disease without esophagitis; O99.335 Smoking (tobacco) complicating the puerperium; F17.200 Nicotine dependence, unspecified, uncomplicated; Z20.822 Contact with and (suspected) exposure to COVID-19; Z79.899 Other long term (current) drug therapy; Z88.1 Allergy status to other antibiotic agents
CPT/HCPCS: 36415; 76856; 80053; 81001; 83605; 83735; 85025; 85610; 85730; 86308; 87086; 87636; 93975; 96360; 99284

== ENCOUNTER 2024-07-11 13:09 | Emergency (ER) | payer BC, OTHER ==
[2024-07-11 13:18] VITALS: RESP 18
--- NOTE | 2024-07-11 14:41 | ED ---
General Adult HPI - General Chief complaint: Vaginal Bleeding Stated complaint: 8 weeks , vaginal bleeding Time Seen by Provider: 07/11/24 13:20 Source: patient, RN notes reviewed Mode of arrival: ambulatory Limitations: no limitations - History of Present Illness Initial comments: This is a 23-year-old female no pertinent medical history, [id number], presenting to emergency room at approximately 8 weeks gestation with complaint of lower abdominal pain and vaginal bleeding. Patient states that she experienced an episode of vaginal bleeding on 07/08/2024 and a small spotting on 07/09/2024. Patient states that she touch base with her OB where she was tricompartments department to rule out potential for ectopic or threatened . Patient h as not yet had care for this . She denies urinary complaints, vaginal discharge or odor, back pain. - Related Data Home Medications Medication Instructions Recorded Confirmed Pnv,Calcium 72/Iron/Folic Acid 1 each PO DAILY 09/28/22 12/23/22 [Westab Plus Tablet] Omeprazole 20 mg PO DAILY 12/23/22 12/23/22 Previous Rx's Medication Instructions Recorded Cephalexin [Keflex] 500 mg PO Q12HR 5 Days #10 cap 12/28/22 Allergies Allergy/AdvReac Type Severity Reaction Status Date / Time nystatin Allergy Rash/Hives Verified 07/11/24 13:18 Review of Systems ROS Statement: Those systems with pertinent positive or pertinent negative responses have been documented in the HPI. ROS Other: All systems not noted in ROS Statement are negative. Past Medical History Past Medical History: GERD/Reflux Additional Past Medical History / Comment(s): migraines. gluten intolerance History of Any Multi-Drug Resistant Organisms: None Reported Past Surgical History: No Surgical Hx Reported Additional Past Surgical History / Comment(s): egd Past Anesthesia/Blood Transfusion Reactions: No Reported Reaction Past Psychological History: Anxiety, Bipolar, Depression Smoking Status: Current every day smoker - Past Family History Mother Family Medical History: Cancer Additional Family Medical History / Comment(s): lung and breast, Grandma had breast and pancreatic, other Grandfather bladder and lung General Exam Limitations: no limitations General appearance: alert, in no apparent distress ENT exam: Present: normal exam, mucous membranes moist Neck exam: Present: normal inspection. Absent: tenderness, meningismus, lymphadenopathy Respiratory exam: Present: normal lung sounds bilaterally. Absent: respiratory distress, wheezes, rales, rhonchi, stridor Cardiovascular Exam: Present: regular rate, normal rhythm, normal heart sounds. Absent: systolic murmur, diastolic murmur, rubs, gallop, clicks GI/Abdominal exam: Present: soft, normal bowel sounds. Absent: distended, tenderness, guarding, rebound, rigid Extremities exam: Present: normal inspection, full ROM, normal capillary refill. Absent: tenderness, pedal edema, joint swelling, calf tenderness Back exam: Present: normal inspection. Absent: CVA tenderness (R), CVA tenderness (L) Skin exam: Present: warm, dry, intact, normal color. Absent: rash Course Vital Signs 07/11/24 07/11/24 13:16 17:39 Temperature 98.1 F 98.0 F Pulse Rate 76 72 Respiratory 18 18 Rate Blood Pressure 132/81 126/76 O2 Sat by Pulse 95 96 Oximetry Medical Decision Making - Medical Decision Making Was pt. sent in by a medical professional or institution (, PA, DIMMER BOARD OPERATOR, urgent care, hospital, or halfway...) When possible be specific @ -No Did you speak to anyone other than the patient for history (EMS, parent, family, police, friend...)? What history was obtained from this source @ -No Did you review nursing and triage notes (agree or disagree)? Why? @ -I reviewed and agree with nursing and triage notes Were old charts reviewed (outside hosp., previous admission, EMS record, old EKG, old radiological studies, urgent care reports/EKG's, halfway records)? Report findings @ -No old charts were reviewed Differential Diagnosis (chest pain, altered mental status, abdominal pain women, abdominal pain men, vaginal bleeding, weakness, fever, dyspnea, syncope, headache, dizziness, GI bleed, back pain, seizure, CVA, palpatations, mental health, musculoskeletal)? @ -Differential Vaginal Bleeding: Spontaneous , threatened , molar , ectopic , bloody show, incompetent cervix, abruptioplacenta, placenta previa, uterine rupture, dysfunctional uterine bleeding, hemorrhage, uterine fibroids, this is not meant to be an all-inclusive list. EKG interpreted by me (3pts min.). @ -None X-rays interpreted by me (1pt min.). @ -None done CT interpreted by me (1pt min.). @ -None done U/S interpreted by me (1pt. min.). @ - ultrasound completed with a single live intrauterine gestation with a calculated age of 6 weeks 5 days and a heart rate of 136. What testing was considered but not performed or refused? (CT, X-rays, U/S, labs)? Why? @ -None What meds were considered but not given or refused? Why? @ -None Did you discuss the management of the patient with other professionals (professionals i.e. , PA, DIMMER BOARD OPERATOR, lab, RT, psych nurse, case management social worker, flex o writer operator, teacher, commercial escrow officer, pillowcase cutter)? Give summary @ -No Was smoking cessation discussed for >3mins.? @ -No Was critical care preformed (if so, how long)? @ -No Were there social determinants of health that impacted care today? How? (Homelessness, low income, unemployed, alcoholism, drug addiction, transportation, low edu. Level, literacy, decrease access to med. care, fpc, rehab)? @ -No Was there de-escalation of care discussed even if they declined (Discuss DNR or withdrawal of care, Hospice)? DNR status @ -No What co-morbidities impacted this encounter? (DM, HTN, Smoking, COPD, CAD, Cancer, CVA, ARF, Chemo, Hep., AIDS, mental health diagnosis, sleep apnea, morbid obesity)? @ -None Was patient admitted / discharged? Hospital course, mention meds given and route, prescriptions, significant lab abnormalities, going to OR and other pertinent info. @ -Discharge. 23-year-old female presenting to emergency department for c omplaints of vaginal bleeding during . Overall patient is well- appearing initial vitals are stable. Abdominal examination is unremarkable. Patient is provided with IV fluids with concern for clinical dehydration will undergo laboratory testing and ultrasound imaging. Patient is hemoglobin is stable at 13.1. Urinalysis reveals epithelial cells [place] [address] and patient's blood type is O-. She is provided with dose of RhoGAM. Ultrasound reveals a intrauterine dated at over 6 weeks with a healthy heart rate. Recommend patient follow-up as scheduled with OB and return parameters discussed. Case discussed with Dr. Mei Undiagnosed new problem with uncertain prognosis? @ -No Drug Therapy requiring intensive monitoring for toxicity (Heparin, Nitro, Insulin, Cardizem)? @ -No Were any procedures done? @ -No Diagnosis/symptom? @ -Threatened Acute, or Chronic, or Acute on Chronic? @ -Acute Uncomplicated (without systemic symptoms) or Complicated (systemic symptoms)? @ -Uncomplicated Side effects of treatment? @ -No Exacerbation, Progression, or Severe Exacerbation? @ -No Poses a threat to life or bodily function? How? (Chest pain, USA, PA, pneumonia, PE, COPD, DKA, ARF, appy, cholecystitis, CVA, Diverticulitis, Homicidal, Suicidal, threat to staff... and all critical care pts) @ -No - Lab Data Result diagrams: 07/11/24 14:52 07/11/24 14:53 Lab Results 07/11/24 07/11/24 07/11/24 Range/Units 14:52 14:52 14:53 WBC 9.83 (4.50-10.00) 10*3/uL RBC 4.10 (4.10-5.20) 10*6/uL Hgb 13.1 (12.0-15.0) g/dL Hct 38.1 (37.2-46.3) % MCV 92.9 (80.0-97.0) fL MCH 32.0 (27.0-32.0) pg MCHC 34.4 (32.0-37.0) g/dL Plt Count 264 (140-440) 10*3/uL MPV 9.8 (9.5-12.2) fL Immature Gran % (Auto) 0.3 % Neutrophils % 75.8 % Lymphocytes % 15.4 % Monocytes % 6.1 % Eosinophils % 1.9 % Basophils % 0.5 % Immature Gran # 0.03 (0.00-0.04) 10*3/uL Neutrophils # 7.45 (1.80-7.70) 10*3/uL Lymphocytes # 1.51 (0.90-5.00) 10*3/uL Monocytes # 0.60 (0.20-1.00) 10*3/uL Eosinophils # 0.19 (0.04-0.35) 10*3/uL Basophils # 0.05 (0.00-0.10) 10*3/uL Sodium 136 L (137-145) mmol/L Potassium 4.3 (3.5-5.1) mmol/L Chloride 104 (98-107) mmol/L Carbon Dioxide 23 (22-30) mmol/L Anion Gap 9 mmol/L BUN 15 (7-17) mg/dL Creatinine 0.64 (0.52-1.04) mg/dL Est GFR (CKD-EPI)AfAm >90 (>60 ml/min/1.73 sqM) Est GFR (CKD-EPI)NonAf >90 (>60 ml/min/1.73 sqM) Glucose 76 (74-99) mg/dL Calcium 9.6 (8.4-10.2) mg/dL Total Bilirubin 0.8 (0.2-1.3) mg/dL AST 21 (14-36) U/L ALT 18 (4-34) U/L Alkaline Phosphatase 54 (38-126) U/L Total Protein 6.9 (6.3-8.2) g/dL Albumin 4.1 (3.5-5.0) g/dL HCG, Quant 33046.8 mIU/mL Urine Color Urine Appearance (Clear) Urine pH (5.0-8.0) Ur Specific Logan (1.001-1.035) Urine Protein (Negative) Urine Glucose (UA) (Negative) Urine Ketones (Negative) Urine Blood (Negative) Urine Nitrite (Negative) Urine Bilirubin (Negative) Urine Urobilinogen (<2.0) mg/dL Ur Leukocyte Esterase (Negative) Urine RBC (0-5) /hpf Urine WBC (0-5) /hpf Ur Squamous Epith Cells (0-4) /hpf Urine Mucus (None) /hpf Blood Type O Negative Blood Type Recheck O Neg Bld Type Recheck Status No Antibody Screen NEGATIVE Spec Expiration Date 07/14/2024 - 235107/11/24 Range/Units 15:48 WBC (4.50-10.00) 10*3/uL RBC (4.10-5.20) 10*6/uL Hgb (12.0-15.0) g/dL Hct (37.2-46.3) % MCV (80.0-97.0) fL MCH (27.0-32.0) pg MCHC (32.0-37.0) g/dL Plt Count (140-440) 10*3/uL MPV (9.5-12.2) fL Immature Gran % (Auto) % Neutrophils % % Lymphocytes % % Monocytes % % Eosinophils % % Basophils % % Immature Gran # (0.00-0.04) 10*3/uL Neutrophils # (1.80-7.70) 10*3/uL Lymphocytes # (0.90-5.00) 10*3/uL Monocytes # (0.20-1.00) 10*3/uL Eosinophils # (0.04-0.35) 10*3/uL Basophils # (0.00-0.10) 10*3/uL Sodium (137-145) mmol/L Potassium (3.5-5.1) mmol/L Chloride (98-107) mmol/L Carbon Dioxide (22-30) mmol/L Anion Gap mmol/L BUN (7-17) mg/dL Creatinine (0.52-1.04) mg/dL Est GFR (CKD-EPI)AfAm (>60 ml/min/1.73 sqM) Est GFR (CKD-EPI)NonAf (>60 ml/min/1.73 sqM) Glucose (74-99) mg/dL Calcium (8.4-10.2) mg/dL Total Bilirubin (0.2-1.3) mg/dL AST (14-36) U/L ALT (4-34) U/L Alkaline Phosphatase (38-126) U/L Total Protein (6.3-8.2) g/dL Albumin (3.5-5.0) g/dL HCG, Quant mIU/mL Urine Color Yellow Urine Appearance Cloudy H (Clear) Urine pH 6.0 (5.0-8.0) Ur Specific Logan 1.034 (1.001-1.035) Urine Protein 1+ H (Negative) Urine Glucose (UA) Negative (Negative) Urine Ketones 4+ H (Negative) Urine Blood Negative (Negative) Urine Nitrite Negative (Negative) Urine Bilirubin Negative (Negative) Urine Urobilinogen <2.0 (<2.0) mg/dL Ur Leukocyte Esterase Small H (Negative) Urine RBC 4 (0-5) /hpf Urine WBC 2 (0-5) /hpf Ur Squamous Epith Cells 16 H (0-4) /hpf Urine Mucus Many H (None) /hpf Blood Type Blood Type Recheck Bld Type Recheck Status Antibody Screen Spec Expiration Date Disposition Clinical Impression: Threatened miscarriage, Vaginal bleeding during Disposition: HOME SELF-CARE Condition: Stable Instructions (If sedation given, give patient instructions): Threatened Miscarriage (ED) Additional Instructions: Please return to the Emergency Department if symptoms worsen or any other concerns. Is patient prescribed a controlled substance at d/c from ED?: No Referrals: Lourdes Wayne MD [Primary Care Provider] - 1-2 days Time of Disposition: 16:15
[2024-07-11 15:08] LABS: Basophils # (A) 0.05 10*3/uL (0.00-0.10); Basophils % (A) 0.5 %; Eosinophils # (A) 0.19 10*3/uL (0.04-0.35); Eosinophils % (A) 1.9 %; HCT 38.1 % (37.2-46.3); HGB 13.1 g/dL (12.0-15.0); Lymphocytes # (A) 1.51 10*3/uL (0.90-5.00); Lymphocytes % (A) 15.4 %; MCHC 34.4 g/dL (32.0-37.0); MCV 92.9 fL (80.0-97.0); Mean Platelet Volume 9.8 fL (9.5-12.2); Monocytes % (A) 6.1 %; Neutrophils # (A) 7.45 10*3/uL (1.80-7.70); Neutrophils % (A) 75.8 %; Platelet Count 264 10*3/uL (140-440); RDW 12.6 % (11.5-14.5); WBC 9.83 10*3/uL (4.50-10.00)
[2024-07-11] MEDS: SODIUM CHLORIDE 0.9% 1,000 ML IV ONE (15:13)
[2024-07-11 15:27] LABS: ALT 18 U/L (4-34); AST 21 U/L (14-36); African American GFR (CKD) >90 (>60 ml/min/1.73 sqM); Albumin 4.1 g/dL (3.5-5.0); Alkaline Phosphatase 54 U/L (38-126); Anion Gap 9 mmol/L; Blood Urea Nitrogen 15 mg/dL (7-17); Calcium 9.6 mg/dL (8.4-10.2); Carbon Dioxide 23 mmol/L (22-30); Chloride 104 mmol/L (98-107); Glucose 76 mg/dL (74-99); Non-African American GFR(CKD) >90 (>60 ml/min/1.73 sqM); Potassium 4.3 mmol/L (3.5-5.1); Sodium 136 mmol/L (137-145); Total Bilirubin 0.8 mg/dL (0.2-1.3); Total Protein 6.9 g/dL (6.3-8.2)
--- NOTE | 2024-07-11 15:51 | US ---
EXAMINATION TYPE: Transabdominal DATE OF EXAM: 07/11/2024 3:39 PM COMPARISON: NONE CLINICAL INDICATION: Female, 23 years old with history of 8 weeks, bleeding, cramping; spotting. TECHNIQUE: Transabdominal (TA) with grayscale and color Doppler imaging including first trimester pre gnancy. FINDINGS: EXAM MEASUREMENTS: GESTATIONAL AGE / DATING Physician Established: Not yet established Dates by LMP: (8 weeks/1 days) EDC: 02/19/2025 Dates by First Scan: No previous this is first scan Dates by Current Scan for: (6 weeks/5 days) EDC: 03/01/2025 MATERNAL ANATOMY Uterus: 8.1 x 5.8 x 8.8 cm Right Ovary: 3.9 x 1.9 x 2.5 cm Left Ovary: 3.1 x 2.2 x 3.2 cm Post CDS / Adnexa: wnl Presence of free fluid: no Presence of corpus luteal cyst: no Presence of subchorionic bleed: no GESTATION / SURVEY CRL: 0.76 cm(6 weeks/5 days) Yolk Sac (normal less than 6mm): 3mm Cardiac Activity/Heart Rate: 136 bpm Rhythm: Normal IUP: Viable IUP Beta HcG (if available): Not available at this time Single live intrauterine gestation. IMPRESSION: Single live intrauterine with calculated ultrasound age of 6 weeks 5 days with estimated da te of delivery of 03/01/2025. [facility], , 07/11/2024 3:49 PM
[2024-07-11 15:58] LABS: Appearance,Urine Cloudy (Clear); Bilirubin,Urine Negative (Negative); Blood,Urine Negative (Negative); Color,Urine Yellow; Glucose,Urine (UA) Negative (Negative); Ketones,Urine 4+ (Negative); Leukocyte Esterase,Urine Small (Negative); Mucus,Urine Many /hpf; Nitrite,Urine Negative (Negative); Protein,Urine 1+ (Negative); RBC,Urine 4 /hpf (0-5); Specific Gravity,Urine 1.034 (1.001-1.035); Squamous Epithelial Cell,Urine 16 /hpf (0-4); Urobilinogen,Urine <2.0 mg/dL (<2.0); WBC,Urine 2 /hpf (0-5)
[2024-07-11] MEDS: Rhogam IMMUNE GLOBULIN 1,500 UNIT/1 ML IM ONE (16:39)
[2024-07-11 16:58] LABS: HCG,Quantitative Serum 73225.8 mIU/mL
[2024-07-11] MEDS: ONDANSETRON ODT 4 MG TAB PO STA (17:19)
[2024-07-11] MEDS: ONDANSETRON 4 MG/2 ML VIAL IVP STA (17:39)
[2024-07-11 17:40] VITALS: BP 126/76; PULSE 72; TEMP 98
== END 2024-07-11 17:40 | disposition home or self-care (01) ==
LOC: EC 13:09
DX: O20.0 Threatened abortion (principal); O99.331 Smoking (tobacco) complicating pregnancy, first trimester; F17.200 Nicotine dependence, unspecified, uncomplicated; Z88.3 Allergy status to other anti-infective agents; Z3A.08 8 weeks gestation of pregnancy
CPT/HCPCS: 36415; 86900; 86901; 80053; 85025; 86850; 81001; 84702; 76801; 99284; 90471; J2790